=== PATIENT | male | born 1990 | race Native Hawaiian/Other Pacific Islander ===

== ENCOUNTER 2019-10-10 08:25 | Emergency (ER) | payer OTHER ==
[~2019-10-10] VITALS: Ht 167.6 cm; Wt 73.0 kg
[~2019-10-10 08:25] MED LIST: ALPR0.5T24 PO; BIAXIN XL500 MG PO; CIPRO500 MG PO; CLON1TAB18 PO; ESCITALOPRAM10 MG PO; GABA300C2 PO; HEARTBURN150 MG PO; HYDR10TA47A PO; METF500T PO; NEXIUM40 M1 PO; ONDA4TAB3 PO; PROMETHAZINE25 MG PO; TEMA30CA18 PO; TRAZ100T OR; TRAZ50TA36 PO; ULTRAM ER300 MG PO; XANAX XR1 MG OR
[2019-10-10 08:30] VITALS: TEMP 98.9
[2019-10-10 09:47] LABS: PLATELET COUNT 285 K/uL (142-355)
[2019-10-10 09:55] LABS: POTASSIUM 3.6 mmol/L (3.6-5.2)
[2019-10-10 11:51] VITALS: BP 114/75
== END 2019-10-10 11:51 | disposition home or self-care (01) ==
LOC: ED 08:25
PROVIDERS: Family Medicine
DX: J18.0 Bronchopneumonia, unspecified organism (principal); R05 Cough
CPT/HCPCS: 80053; 81000; 85027; 87502; 96372; 99283; J0696